=== PATIENT | female | born 1980 | race African-American/Black ===

== ENCOUNTER 2023-09-21 10:26 | Emergency (ER) | payer OTHER, SELFPAY ==
--- NOTE | 2023-09-21 10:50 | ED.FEMALEGU ---
HPI - Female Genitourinary General Chief complaint: Urogenital-Female Stated complaint: std Testing Time Seen by Provider: 09/21/23 10:50 Source: patient Mode of arrival: ambulatory Limitations: no limitations History of Present Illness HPI Narrative: 42-year-old female presents with complaint of exposure to chlamydia. Reports that her partner told her today that he was tested last week and positive. She states she is not having any symptoms. All systems reviewed and negative except as noted above. Related Data Home Medications Medication Instructions Recorded Confirmed fexofenadine 180 mg tablet 180 mg PO DIRECTED 09/21/23 09/21/23 (Allergy Relief (fexofenadine)) sertraline 100 mg tablet 100 mg PO DIRECTED 09/21/23 09/21/23 valacyclovir 500 mg tablet 500 mg PO DIRECTED 09/21/23 09/21/23 Allergies Allergy/AdvReac Type Severity Reaction Status Date / Time No Known Allergies Allergy Verified 09/21/23 10:56 Review of Systems Review of Systems: CONSTITUTIONAL: Denies fever, chills, or sweats. EYES: Denies visual changes, redness, or discharge. ENT: Denies rhinorrhea, congestion, sore throat, or otalgia. CARDIOVASCULAR: Denies chest pain, palpitations, or edema. RESPIRATORY: Denies cough or dyspnea. GASTROINTESTINAL: Denies abdominal pain, nausea, vomiting, or diarrhea. GENITOURINARY: Denies dysuria or hematuria. SKIN: Denies rash or itching. MUSCULOSKELETAL: Denies back pain, joint pain, or myalgia. NEUROLOGIC: Denies headache, numbness, or weakness. PSYCHIATRIC: Denies anxiety or depression. All other systems reviewed are negative, except as documented in HPI. PMFSH Comments At time of signature, agree with nursing past medical, surgical, social and family history. There is no relevant family history pertinent to the presenting complaint. Exam Narrative: GENERAL: This is a well-nourished, well-developed patient, in no apparent distress. HEAD: normocephalic, atraumatic. EYES: PERRL. Sclera clear/white. Vision is grossly intact. EARS: External ears normal NOSE: External nose normal NECK: Neck supple, non-tender without lymphadenopathy, masses or thyromegaly. CARDIOVASCULAR: Regular rate and rhythm without murmurs, gallops, or rubs. RESPIRATORY: Clear to auscultation. Breath sounds equal bilaterally. No wheezes, rales, or rhonchi. SKIN: warm, Dry, intact with no suspicious lesions or rash, good texture and turgor. NEURO: awake, alert, and oriented to person, place and time. There were no obvious focal neurologic abnormalities. EXTREMITIES: No joint tenderness, effusion, or edema noted. : Speculum Exam - Vagina: normal appearance of the vagina and abnormal vaginal discharge white Other: cervix absent due to hysterectomy Course Course Level of Care: Express Care Visit Vital Signs Vital signs: Vital Signs Temperature 36.8 C 09/21/23 10:51 Pulse Rate 94 09/21/23 10:51 Respiratory Rate 13 09/21/23 10:51 Blood Pressure 137/95 H 09/21/23 10:51 Pulse Oximetry 99 09/21/23 10:51 Oxygen Delivery Room Air 09/21/23 10:51 Temperature 36.8 C 09/21/23 10:51 Pulse Rate 94 09/21/23 10:51 Respiratory Rate 13 09/21/23 10:51 Blood Pressure 137/95 H 09/21/23 10:51 Pulse Oximetry 99 09/21/23 10:51 Oxygen Delivery Room Air 09/21/23 10:51 Reviewed MDM - Female Genitourinary MDM Narrative Medical decision making narrative: STI testing ordered for gonorrhea, chlamydia, Trichomonas. Patient treated for chlamydia today due to exposure. Recommend she follow-up with a plant and maintenance technician for further evaluation. Patient is aware of diagnosis, understands and agrees to treatment plan. Anticipatory guidance given. Patient agrees to follow-up as directed and is aware of reasons to seek care at the emergency department. Portions of this record may have been created with voice recognition software Discharge Plan Discharge Clinical Impressio
[2023-09-21 10:51] VITALS: BP 137/95; PULSE 94; RESP 13; TEMP 36.8; O2SAT 99
[2023-09-21 20:58] LABS: Chlamydia trachomatis DETECTED (NOT DETECTE); Neisseria gonorrhoeae PCR NOT DETECTED (NOT DETECTE)
== END 2023-09-21 11:12 | disposition home or self-care (01) ==
PROVIDERS: Emergency Provider Nurse Practitioner Family
DX: Z20.2 Contact with and (suspected) exposure to infections with a predominantly sexual mode of transmission (principal); Z79.899 Other long term (current) drug therapy
CPT/HCPCS: 87491; 87591; 99204; G0463